=== PATIENT | female | born 1950 | race Caucasian/White ===

== ENCOUNTER 2019-07-15 20:50 | Emergency (ER) | payer OTHER, MEDICARE ==
[~2019-07-15] VITALS: Ht 170.1 cm; Wt 75.3 kg
--- NOTE | ~2019-07-15 | EKG ---
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
[~2019-07-15 20:50] MED LIST: XARE15TA PO; XARE20MG PO
[2019-07-15 21:53] LABS: BASO # 0.1 10*3/uL (0.0-0.1); BASO % 0.7 % (0.0-1.0); EOS # 0.2 10*3/uL (0.0-0.4); EOS % 2.7 % (1.0-4.0); HEMATOCRIT 38.9 % (37.0-47.0); HEMOGLOBIN 12.7 g/dl (12.0-16.0); LYMPH # 2.2 10*3/uL (1.3-4.4); LYMPH % 30.8 % (27.0-41.0); MEAN CELL VOLUME 98.2 fl (81.0-99.0); MEAN CORPUSCULAR HGB 32.1 pg (27.0-31.0); MEAN CORPUSCULAR HGB CONC 32.6 g/dl (33.0-37.0); MEAN PLATELET VOLUME 10.8 fl (9.6-12.3); MONO # 0.4 10*3/uL (0.1-1.0); MONO % 6.3 % (3.0-9.0); NEUT # 4.1 10*3/uL (2.3-7.9); NEUT % 58.8 % (47.0-73.0); PLATELET COUNT AUTOMATED 265 10*3/uL (130-400); RED BLOOD COUNT 3.96 10*6/uL (4.10-5.10); RED CELL DISTRI WIDTH 12.5 % (0-14.5)
[2019-07-15 22:05] LABS: INTERNATIONAL NORM RATIO 0.9 (2.0-3.5)
[2019-07-15 22:08] LABS: ALBUMIN 2.9 gm/dl (3.1-4.5); ALKALINE PHOSPHATASE 90 U/L (45-117); BUN 20 mg/dl (7-24); CHLORIDE 107 mmol/L (98-107); CREATININE 1.07 mg/dL (0.55-1.02); LIPASE 128 U/L (73-393); POTASSIUM 3.7 mmol/L (3.5-5.1); SGOT/AST 10 IU/L (3-35); SGPT/ALT 19 U/L (12-78); SODIUM 138 mmol/L (136-145); TOTAL PROTEIN 7.2 gm/dL (6.4-8.2)
[2019-07-15 22:09] LABS: TROPONIN I < 0.015 ng/ml (<0.045)
[2019-07-15] MEDS ORDERED: XARE20MG PO (22:58)
== END 2019-07-16 00:05 | disposition home or self-care (01) ==
LOC: ED 20:50
PROVIDERS: Emergency Medicine Emergency Medical Services
DX: I80.01 Phlebitis and thrombophlebitis of superficial vessels of right lower extremity (principal); J44.9 Chronic obstructive pulmonary disease, unspecified; R11.0 Nausea; R53.1 Weakness; R42 Dizziness and giddiness; Z88.6 Allergy status to analgesic agent